=== PATIENT | female | born 1970 | race American Indian/Alaskan Native ===

== ENCOUNTER 2019-07-26 02:15 | Emergency (ER) | payer BC ==
--- NOTE | 2019-07-26 02:48 | Emergency Department Report ---
ED General Adult HPI - General Chief complaint: High BP Stated complaint: HIGH BP Time Seen by Provider: 07/26/19 02:41 Source: patient, EMS Mode of arrival: Stretcher Limitations: No Limitations - History of Present Illness Initial comments: 48-year-old female with a history of hypertension presents stating her blood pressure was elevated. Patient states she's been out of meds for the past 3 days. Patient denies any shortness of breath or chest pain. Patient states she's been feeling woozy. Patient denies any focal weakness or slurred speech and has no residual neurologic facets. Patient states she does have a history of a CVA in the past and with her blood pressure being elevated and her being out of medications was highly concerned. Patient is ambulatory in emergency department. - Related Data Home Medications Medication Instructions Recorded Confirmed Last Taken NIFEdipine [Procardia Xl] 60 mg PO 07/26/19 Unknown Previous Rx's Medication Instructions Recorded Last Taken Type NIFEdipine XL [Procardia Xl] 60 mg PO QDAY #30 tablet 07/26/19 Unknown Rx Allergies Allergy/AdvReac Type Severity Reaction Status Date / Time No Known Allergies Allergy Verified 07/26/19 04:19 ED Review of Systems ROS: Stated complaint: HIGH BP Other details as noted in HPI Constitutional: denies: chills, fever Eyes: denies: eye pain, eye discharge, vision change ENT: denies: ear pain, throat pain Respiratory: denies: cough, shortness of breath, wheezing Cardiovascular: denies: chest pain, palpitations Endocrine: no symptoms reported Gastrointestinal: denies: abdominal pain, nausea, diarrhea Genitourinary: denies: urgency, dysuria, discharge Musculoskeletal: denies: back pain, joint swelling, arthralgia Skin: denies: rash, lesions Neurological: denies: headache, weakness, paresthesias Psychiatric: denies: anxiety, depression Hematological/Lymphatic: denies: easy bleeding, easy bruising ED Past Medical Hx - Past Medical History Previous Medical History?: Yes Hx Hypertension: Yes Hx CVA: Yes (Sep 2018) Additional medical history: anemia - Surgical History Past Surgical History?: No - Social History Smoking Status: Never Smoker - Medications Home Medications: Home Medications Medication Instructions Recorded Confirmed Last Taken Type NIFEdipine XL [Procardia Xl] 60 mg PO QDAY #30 tablet 07/26/19 Unknown Rx NIFEdipine [Procardia Xl] 60 mg PO 07/26/19 Unknown History ED Physical Exam - General Limitations: No Limitations General appearance: alert, in no apparent distress - Head Head exam: Present: atraumatic, normocephalic - Eye Eye exam: Present: normal appearance - ENT ENT exam: Present: mucous membranes moist - Neck Neck exam: Present: normal inspection - Respiratory Respiratory exam: Present: normal lung sounds bilaterally. Absent: respiratory distress - Cardiovascular Cardiovascular Exam: Present: regular rate, normal rhythm. Absent: systolic murmur, diastolic murmur, rubs, gallop - GI/Abdominal GI/Abdominal exam: Present: soft, normal bowel sounds - Extremities Exam Extremities exam: Present: normal inspection - Back Exam Back exam: Present: normal inspection - Neurological Exam Neurological exam: Present: alert, oriented X3 - Psychiatric Psychiatric exam: Present: normal affect, normal mood - Skin Skin exam: Present: warm, dry, intact, normal color. Absent: rash ED Course Vital Signs 07/26/19 07/26/19 07/26/19 02:24 02:29 02:31 Temperature 98.1 F Pulse Rate 72 79 78 Respiratory 16 18 13 Rate Blood Pressure 196/89 195/96 O2 Sat by Pulse 100 100 Oximetry 07/26/19 07/26/19 07/26/19 03:00 03:31 04:00 Temperature Pulse Rate 55 L 71 67 Respiratory 17 11 L 26 H Rate Blood Pressure 195/96 189/95 189/95 O2 Sat by Pulse 98 100 100 Oximetry 07/26/19 07/26/19 07/26/19 04:39 05:01 05:30 Temperature Pulse Rate Respiratory Rate Blood Pressure 189/95 199/78 188/84 O2 Sat by Pulse 100 100 99 Oximetry ED Medical Decision Making - Lab Data Result diagrams: 07/26/19 03:55 07/26/19 03:55 - Medical Decision Making Patient's blood pressure is improved and patient was given Procardia therapy. Patient has a normal neurologic exam and will be discharged to follow up with PCP. - Differential Diagnosis intracranial bleed; electrolyte abnormality; anemia; Critical care attestation.: If time is entered above; I have spent that time in minutes in the direct care of this critically ill patient, excluding procedure time. ED Disposition Clinical Impression: Hypertension, History of CVA (cerebrovascular accident) Disposition: -01 TO HOME OR SELFCARE Is pt being admited?: No Condition: Stable Instructions: Hypertension (ED) Prescriptions: NIFEdipine XL [Procardia Xl] 60 mg PO QDAY #30 tablet Time of Disposition: 06:39 Print Language: [place]OT[place]
[2019-07-26] MEDS ORDERED: NIFEdipine XL 60 MG TAB PO ONE (04:17)
[2019-07-26 04:49] LABS: Hematocrit 30.6 % (30.3-42.9); Hemoglobin 9.5 gm/dl (10.1-14.3); Mean Corpuscular HGB Conc 31 % (30-34); Mean Corpuscular Volume 81 fl (79-97); Platelet Count 265 K/mm3 (140-440); Red Cell Distribution Width 19.7 % (13.2-15.2)
[2019-07-26 05:08] LABS: Alanine Aminotransferase 10 units/L (7-56); Albumin 3.6 g/dL (3.9-5); BUN/Creatinine Ratio 15; Blood Urea Nitrogen 12 mg/dL (7-17); Hemolysis Index 8
--- NOTE | 2019-07-26 06:20 | Cat Scan Report ---
CT head/brain wo con INDICATION / CLINICAL INFORMATION: vision changes/MORFIN. TECHNIQUE: Axial CT imaging of the brain was obtained without contrast. Coronal and sagittal reformatted imaging obtained and reviewed. All CT scans at this location are performed using CT dose reduction for ALAR A by means of automated exposure control. COMPARISON: None available. FINDINGS: No intracranial hemorrhage, mass, or midline shift. No extra-axial fluid collection or suggestion of acute territorial infarct. Ventricular system and basilar cisterns are unremarkable. Visualized paranasal sinuses and mastoid air cells are well aerated and clear. IMPRESSION: 1. Negative noncontrasted head CT scan. Signer Name: Cyn Goins MD Signed: 07/26/2019 6:15 AM Workstation Name: [id number]
[2019-07-26 07:05] VITALS: BP 175/89
== END 2019-07-26 07:03 | disposition home or self-care (01) ==
LOC: ED 02:15
DX: I10 Essential (primary) hypertension (principal); Z86.73 Personal history of transient ischemic attack (TIA), and cerebral infarction without residual deficits; Z86.2 Personal history of diseases of the blood and blood-forming organs and certain disorders involving the immune mechanism; Z79.899 Other long term (current) drug therapy
CPT/HCPCS: 36415; 70450; 80053; 85027; 99284